=== PATIENT | male | born 1940 | race Hispanic/Latino ===

== ENCOUNTER 2017-04-25 15:16 | Observation (INO) | payer MEDICARE, MEDICAID ==
[~2017-04-25] VITALS: Ht 175.3 cm; Wt 93.0 kg
[2017-04-25] VITALS (8 sets, daily range): BP systolic 143–181; BP diastolic 77–88; PULSE 74–84; RESP 15–18; O2SAT 98–100
[~2017-04-25 15:16] MED LIST: ASPI-973 PO; CYCL10TA9 PO; HYDR-3091 PO; INSU100I13 SUBQ; LOSA1TAB35 PO; ROSU40TA PO
--- NOTE | 2017-04-25 15:23 | ED.REPORT ---
HPI-General Illness Date of Service Apr 25, 2017 ED Provider: Dr. Ovi Hernandez MD Patient is 77 year old, Mauritanian-speaking male with a history of CAD, diabetes mellitus type II, hypertension, hyperlipidemia and depression who presents to the ED with shaking chills that began 1 week ago. 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 Munira Kahn, after presenting with chills, diaphoresis, general fatigue, subjective fever, new onset LE edema and new onset murmur. He was sent to the ED with concern for endocarditis. His symptoms initially began 3 weeks ago with general fatigue, but the episodes of chills and diaphoresis began 1 week ago. TTE from 1 year ago was unremarkable except mitral annular calcification. EKG at the cardiology clinic was normal. They deny any history of cardiac infection. Recent sick contacts had diarrhea but patient has not experienced any abnormal BM. Family denies any recent rash, chest pain or SOB. Nursing Notes Stated Complaint: CHEST PAIN FROM CARDIOLOGY Chief Complaint: General Complaint Nursing Notes Reviewed: Yes Allergies: Coded Allergies: No Known Allergies (Unverified , 04/25/17) Scheduled Aspirin (Aspirin) 81 Mg Tablet 81 MG PO DAILY Insulin Aspart (NovoLOG U-100 Pen) 100 Unit/Ml Insuln.pen 14 UNITS SUBQ DAILYWM Insulin Glargine (Lantus U100 Solostar Insulin Pen) 100 Unit/1 Ml Insuln.pen 54 UNIT SUBQ QAM Losartan/HCTZ 100-12.5 mg (Losartan/HCTZ 100-12.5 mg) 1 Each Tablet 1 TABLET PO DAILY Metformin (Metformin) 500 Mg Tablet 1,000 MG PO BID Metoprolol Succinate ER (Metoprolol Succinate ER) 25 Mg Tab.er.24h 25 MG PO DAILY Rosuvastatin Calcium (Crestor) 40 Mg Tablet 40 MG PO DAILY Scheduled PRN Triamcinolone Acetonide (Triamcinolone Acetonide Ointment) 15 Gm Oint...g. 1 APPLIC TOP BID PRN PRN rash General Time Seen by MD: 15:22 Chief Complaint Other (Shanking chills) Hx Obtained From: Patient Arrived By: Walk-in Sudden in Onset?: No Onset Occurred: 21 - 23 hours ago Symptom Duration: Since onset Location: : Chest Quality: Painful Severity: Current: Mild Severity: Maximum: Moderate Associated with: Reports: Chest pain, Diaphoresis Pertinent Negative: Pt denies other symptoms Recent Healthcare: No recent hospitalization, Recent doctor visit Past Medical History Past Medical History Notes: Cardiology: Dr. Munira Kahn MD Echocardiogram 03/13/14: Interpretation Summary The left ventricle is normal in size. Left ventricular systolic function is probably normal. The ejection fraction is estimated to be 55-60%. In limited views, there is hypokinesis of the anterior and anteroseptal segments. The right ventricle is not well visualized. The right ventricle grossly appears normal in size with probable normal systolic function. Pulmonary artery pressures cannot be estimated because of the lack of a measurable TR jet velocity. The left atrium is borderline dilated. Right atrial size is normal. There is moderate to severe mitral annular calcification. There is no other significant valvular heart disease. Moderate atherosclerotic plaque(s) in the aortic arch. Past Medical History Reports: Coronary artery disease, Diabetes mellitus, Hyperlipidemia, Hypertension Reports: Depression Past Surgical History Reports: CABG Smoking History Unknown if Ever Smoker Social History Alcohol Use: Denies alcohol use Drug Use: Denies drug use Other Social History: Good social support Ambulatory Status Independent Review of Systems New onset heart murmur Full Review of Systems Constitutional: Reports: Chills, Fatigue, Fever (subjective ) Respiratory: Denies: Shortness of breath Cardiovascular: Reports: Chest pain, Edema (New onset LE edema) Skin: Reports Diaphoresis, Denies Rash Complete sys rev & neg: except as marked. Physical Exam Vital Signs Vital Signs Date Time Temp Pulse Resp B/P Pulse Ox O2 Delivery O2 Flow Rate FiO2 04/25/17 17:52 78 16 167/81 100 Room Air 04/25/17 16:49 80 15 158/80 100 Room Air 04/25/17 15:18 37.1 74 16 143/77 99 Room Air Initial VS: Reviewed Neck: Supple, Non-tender, Full range of motion Skin: Warm, Dry, No cyanosis Neurologic: Alert, Oriented, Nonfocal Psychiatric: Mood/affect normal, Behavior normal, Normal thought content General/Constitutional: Awake, Alert, No acute distress, Well appearing, Well developed Head / Eyes: Atraumatic, Normocephalic, PERRL Respiratory / Chest: Atraumatic, Breath sounds NL, Breath sounds = bilat, No respiratory distress Cardiovascular: Heart rate NL, Regular rhythm, No gallop, No murmurs, No rubs Heart Sounds / Murmur: Positive: Systolic murmur present.. (III/; best heard in the right upper sternal boarder ) Lower Ext Edema: Positive: Bilateral 2+ (symmetric 2 + pitting edema that extends up to the knee), Pitting CARDIO: No splinter hemorrhage No ossicular nodes No other evidence of endocarditis Abdomen: Atraumatic, Soft, Non-tender, BS normoactive, No distention Upper Extremities Upper Extremity / MS: Atraumatic, Inspection NL, Neurologic intact, Vascular intact Lower Extremity / Pelvis / MS: Atraumatic, Neurologic intact, Vascular intact Interpretation & Diagnostics Lab Results Interpretation Result Diagram: 04/25/17 1540 04/25/17 1540 Test 04/25/17 15:40 04/25/17 16:07 04/25/17 16:40 White Blood Count 7.0th/mm3 (3.8-10.1) Red Blood Count 4.23mil/mm3 (4.40-5.80) Hemoglobin 12.1g/dL (13.8-17.2) Hematocrit 36.5% (41.0-50.0) Mean Corpuscular Volume 86.3fL (81-100) Mean Corpuscular Hemoglobin 28.6pg (27.0-35.0) Mean Corpuscular Hemoglobin Concent 33.2% (32.0-37.0) Red Cell Distribution Width 13.9% (12.3-15.4) Platelet Count 219bil/L (150-400) Neutrophils (%) (Auto) 69.8% (40-74) Lymphocytes (%) (Auto) 18.9% (14-46) Monocytes (%) (Auto) 9.4% (4-12) Eosinophils (%) (Auto) 1.0% (0-5) Basophils (%) (Auto) 0.6% (0-3) Prothrombin Time 10.2sec (8.1-12.5) Prothromb Time International Ratio 0.95ratio Sodium Level 137mEq/L (134-144) Potassium Level 3.9mEq/L (3.5-5.2) Chloride Level 102mEq/L (97-108) Carbon Dioxide Level 19mmol/L (18-29) Blood Urea Nitrogen 23mg/dL (8-27) Creatinine 1.07mg/dL (0.76-1.27) Estimat Glomerular Filtration Rate 71mL/min (>59) Glucose Level 212mg/dL (60-99) Calcium Level 9.0mg/dL (8.5-10.1) Magnesium Level 1.8mg/dL (1.6-2.6) Total Bilirubin 0.2mg/dL (0.0-1.2) Aspartate Amino Transf (AST/SGOT) 23U/L (0-50) Alanine Aminotransferase (ALT/SGPT) 11U/L (0-44) Alkaline Phosphatase 40U/L (25-160) Troponin T < 0.010ug/L (0.0-0.011) C-Reactive Protein 0.5mg/dL (0.0-0.5) Pro-B-Type Natriuretic Peptide 272.6pg/mL (0-486) Total Protein 6.7g/dL (6.4-8.4) Albumin 3.2g/dL (3.4-5.0) Lactic Acid Level 1.0mmol/L (0.4-2.0) Erythrocyte Sedimentation Rate 38mm/hr (0-30) ECG Interpretation ECG Interpretation: Sinus Rhythm Rate 77 bpm L axis deviation Inferior Q waves No ST changes No T wave abnormalities When compared to prior 11/12/15 - No acute changes present Time: 16:01 Interpreted by: ED physician X-Ray Chest Interpretation Chest Xray Interpretation: IMPRESSION: No acute cardiopulmonary disease. Left basilar scar/atelectasis. Dictated by: Sebastien Sorensen M.D. on 04/25/2017 at 16:39 Interpretation / Wet Read by: Interpret - Radiologist Re-Eval/Medical Decision Med Decision/Clinical Course Patient is 77 year old, [place]itanian-speaking male with a history of CAD, diabetes mellitus type II, hypertension, hyperlipidemia and depression who presents to the ED with shaking chills that began 1 week ago. 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 Munira Kahn, after presenting with chills, diaphoresis, general fatigue, subjective fever, new onset LE edema and new onset murmur. He was sent to the ED with concern for endocarditis. Here in the emergency department the patient is somewhat unwell appearing though afebrile and hemodynamically stable with examination as above. EKG Sinus Rhythm Rate 77 bpm L axis deviation Inferior Q waves No ST changes No T wave abnormalities When compared to prior 11/12/15 - No acute changes present LABS CBC no leukocytosis Hct = 36.5 CMP unremarkable except glucose = 312 Troponin negative BNP within normal limits C reactive protein = 1.5 Coag norm CXR: No acute cardiopulmonary disease. Left basilar scar/atelectasis. 3 sets of blood cultures were obtained. A transthoracic echocardiogram was ordered. The patient's pretest probability for bacterial endocarditis seems relatively low as the patient has no history of IV drug use or valvular disease/ valvular surgery. That being said indolent infection symptoms including subjective fevers, chills and sweats in the setting of new-onset murmur is somewhat concerning for endocarditis. After discussing further with cardiology we have opted to withhold antibiotics until echocardiogram is ordered as our suspicion is still relatively low. Patient was discussed with hospitalist and admitted for further workup and management and consultation with cardiology. Transferred in stable condition. Time of Eval: 15:35 Re-Evaluation/Progress Note: Family is informed of the pt's concerning symptoms and the likely plan to admit for endocarditis work-up. Re-Evaluation/Progress Note: The patient's symptoms have improved. Consultation #1: Referral / Consult Name: Deng Allan MD Consulted With: Cardiology Call Returned at: 16:43 Control Area Operator: Will see patient, Agrees with eval, Agrees with plan Note: Agrees to consult on the patient Consultation #2: Referral / Consult Name: Tarun Dumont MD Consulted With: Hospitalist Call Returned at: 17:06 Control Area Operator: Will see patient, Agrees with eval, Agrees with plan, Accepts admit Counseled Regarding: Diagnosis, Lab results, Need for admission Discharge & Departure Primary Impression: Heart murmur, systolic Additional Impressions: Fever Fever type: unspecified Qualified Code: R50.9 - Fever, unspecified Chills Night sweats Hyperglycemia Disposition: ADMITTED TO HOSPITAL Discharge Condition All VS Reviewed: Yes Condition: Stable Referrals: NOPCP (PCP) Munira Kahn MD Scribe Attestation Portions of this note were transcribed by Komal Jaquez. I, Dr. Hernandez personally performed the history, physical exam and medical decision-making; I reviewed and confirmed the accuracy of the information in the transcribed note. Signed by: Olegario Smith, 04/25/17 1216. copies to: Munira Kahn MD, Beck O MD Apr 25, 2017 15:23 KOMAL JAQUEZ Apr 25, 2017 15:36
[2017-04-25 15:53] LABS: BASOPHILS % (AUTO) 0.6 % (0-3); MONOCYTES % (AUTO) 9.4 % (4-12); Mean Corpuscular Hemoglobin 28.6 pg (27.0-35.0); Mean Corpuscular Volume 86.3 fL (81-100); NEUTROPHILS % (AUTO) 69.8 % (40-74); Platelet Count 219 bil/L (150-400)
[2017-04-25] MEDS ORDERED: INSU100I SUBQ (15:58)
[2017-04-25] MEDS ORDERED: METO25TA99 PO (15:58)
[2017-04-25] MEDS ORDERED: METF500T4 PO (16:01)
[2017-04-25 16:11] LABS: INR 0.95 ratio
[2017-04-25 16:23] LABS: TROPONIN T < 0.010 ug/L (0.0-0.011)
[2017-04-25] MEDS ORDERED: TRIA15OI9 TOP (16:27)
[2017-04-25 16:33] LABS: Magnesium 1.8 mg/dL (1.6-2.6)
--- NOTE | 2017-04-25 16:42 | DRSVH ---
PROCEDURE: X-RAY CHEST, TWO VIEWS ([id number]) INDICATIONS: 77-year-old male with shortness of breath. TECHNIQUE: 2 views of the chest were acquired. COMPARISON: [facility], , CHEST 2VW, 01/24/2014, 11:15. FINDINGS: Surgical changes and devices: Sternotomy. There are multiple surgical clips around the mediastinum. Lungs and pleura: No pleural effusions or pneumothorax. Left basilar scar/atelectasis. Mediastinum: Mediastinal contours are normal. Heart size is normal. Bones and chest wall: No suspicious bony abnormalities. Soft tissues appear unremarkable. IMPRESSION: No acute cardiopulmonary disease. Left basilar scar/atelectasis. Dictated by: Sebastien Sorensen M.D. on 04/25/2017 at 16:39 Approved by: Sebastien Sorensen M.D. on 04/25/2017 at 16:41
[2017-04-25] MEDS ORDERED: Ondansetron 2 mg/mL 2 mL Inj IVPUSH PRN (17:55)
[2017-04-25] MEDS ORDERED: Alum-Mag Hydrox-Simeth 30 mL Suspension PO PRN (17:55)
[2017-04-25] MEDS ORDERED: Polyethylene Glycol (PEG) 17 Gm Powder PO PRN (17:55)
[2017-04-25] MEDS ORDERED: Glucose 40% Oral Gel 15 Gm Tube PO PRN (18:00)
[2017-04-25] MEDS: Insulin GLARgine 100 Unit/mL Syringe SUBQ SCH (18:00)
[2017-04-25] MEDS ORDERED: TRIAMCINOLONE ACETONIDE TOPICAL PRN (18:00)
--- NOTE | 2017-04-25 18:11 | NUR ---
Admit Pt admitted to [facility] room 3030 via ED, report received from Anastasiya. Pt arrived via wheelchair, was able to ambulate to scale and bed independently. Family at bedside, good support, and translating for staff. Pt A/O x 3, able to make needs known, cooperative and pleasant to staff. Will continue to monitor.
[2017-04-25] MEDS ORDERED: Labetalol 5 mg/mL 20 mL Inj IVPUSH PRN (18:45)
[2017-04-25] MEDS ORDERED: Labetalol 5 mg/mL 20 mL Inj IVPUSH ONE (18:55)
--- NOTE | 2017-04-25 20:14 | PCM.HPMED ---
Subjective Date of Service Apr 25, 2017 Primary Provider: Admitting Physician: Tarun Dumont MD Primary Care Physician: [place] Attending Physician: Tarun Dumont MD Admit Status: From the Emergency Department Chief Complaint: Diaphoresis , edema History of Present Illness: Patient is 77 year old, Croatian-speaking male with a history of CAD (s/p CABG 2008, and revision in 2009 as per family), diabetes mellitus type II, hypertension, hyperlipidemia and depression who presents to the ED with diaphoresis +/- chills for about a week. He added he has been experiencing edema in his legs for a month or so. 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 Munira Kahn, after presenting with chills, diaphoresis, general fatigue = new onset LE edema and new onset murmur. He was sent to the ED with concern for endocarditis. His symptoms initially began 3 weeks ago with general fatigue , but the episodesdiaphoresis began 1 week ago. TTE from 1 year ago was unremarkable except mitral annular calcification. EKG at the cardiology clinic was normal. They deny any history of cardiac infection. Recent sick contacts had diarrhea but patient has not experienced any abnormal BM. Family denies any recent rash, chest pain or SOB.He did add that his tooth broke about a week ago while eating a modi. However denies, any pain around that area. Allergies Coded Allergies: No Known Allergies (Unverified , 04/25/17) Constitutional: : Chills: Sweats Eyes: No: Conjunctivae inflammation, Eyelid inflammation, Other, Pain, Redness , Vision change ENT: No: Ear discharge, Ear pain, Mouth pain, Mouth swelling, Nose congestion, Nose discharge, Nose pain, Other, Throat pain, Throat swelling Respiratory: No: Cough, Dry, Hemoptysis, Other, Pleuritic Pain, SOB with excertion, Shortness of breath, Sputum, Wheezing, Wheezing Cardiovascular: : Edema Gastrointestinal: No: Abdominal Pain, Constipation, Diarrhea, Hematochezia, Melena, Nausea, Other, Vomiting Genitourinary: Negative for: Dysuria, Frequency, Hematuria, Incontinence, Other , Retention Musculoskeletal: : hand pain (bilateral )No: arm pain, back pain, foot pain, leg pain, neck pain, other, shoulder pain Skin: No: Bruising, Jaundice, Lesions, Other, Rash Neurological: No: Change in speech, Confusion, Incoordination, Numbness, Other , Seizures, Weakness Home Meds Reported Medications Triamcinolone Acetonide (Triamcinolone Acetonide Ointment)15 Gm Oint...g.1 Applic TOP BID PRN rash 04/25/17 Metformin 500 Mg Tablet1,000 Mg PO BID 04/25/17 Metoprolol Succinate ER 25 Mg Tab.er.24h25 Mg PO DAILY 04/25/17 Insulin Aspart (NovoLOG U-100 Pen)100 Unit/Ml Insuln.pen14 Units SUBQ DAILYWM 04/25/17 Losartan/HCTZ 100-12.5 mg 1 Each Tablet1 Tablet PO DAILY 11/12/15 Insulin Glargine (Lantus U100 Solostar Insulin Pen)100 Unit/1 Ml Insuln.pen54 Unit SUBQ QAM 11/12/15 Rosuvastatin Calcium (Crestor)40 Mg Bkodod47 Mg PO DAILY 11/12/15 Aspirin 81 Mg Vedvjt34 Mg PO DAILY 11/12/15 Discontinued Reported Medications Hydrocodone-Acetaminophen 7.5-300 mg 1 Each Tablet1 Each PO BID PRN For Pain Ref 0 started 11/11/15 11/12/15 Cyclobenzaprine 10 Mg Arnhig60 Mg PO TID PRN Spasm started 11/11/15 11/12/15 PM Coronary artery disease, Diabetes mellitus, Hyperlipidemia, Hypertension Surgical History CABG Social History Hx Alcohol Use: No Hx Substance Use: No Smoking Status: Unknown if Ever Smoker Exam Vital Signs Vital Sign - Last Date Time Temp Pulse Resp B/P Pulse Ox O2 Delivery O2 Flow Rate FiO2 04/25/17 19:50 36.5 81 18 158/80 98 Room Air Exam Neck: Supple, Non-tender, Full range of motion Skin: Warm, Dry, No cyanosis Neurologic: Alert, Oriented, Nonfocal Psychiatric: Mood/affect normal, Behavior normal, Normal thought content General/Constitutional: Awake, Alert, No acute distress, Well appearing, Well developed Head / Eyes: Atraumatic, Normocephalic, PERRL Respiratory / Chest: Atraumatic, Breath sounds NL, Breath sounds = bilat, No respiratory distress Cardiovascular: Heart rate NL, Regular rhythm, No gallop, No murmurs, No rubs Heart Sounds / Murmur: Positive: Systolic murmur present.. (III/) Lower Ext Edema: Positive: Bilateral 2+ (symmetric 2 + pitting edema that extends up to the knee), Pitting Lab and Diagnostics Result Diagram: 04/25/17 1540 04/25/17 1540 X-Rays, CTs and MRIs CXR IMPRESSION: No acute cardiopulmonary disease. Left basilar scar/atelectasis. 12-lead ECG . Sinus rhythm . Probable left atrial enlargement . Abnormal R-wave progression, early transition . Inferior infarct, old . When compared with ECG of 12-Nov-2015 19:28:39, . Change in interpretation without significant change in waveform Assessment & Plan Patient is 77 year old, Croatian-speaking male with a history of CAD (s/p CABG 2008, and revision in 2009 as per family), diabetes mellitus type II, hypertension, hyperlipidemia and depression who presents to the ED with diaphoresis +/- chills for about a week, sent from clinic with new systolic murmur. > Systolic murmur - grade III/ - considering given history, and h/o CABG, concern for endocarditis - labs negative for infection - no lactic acidosis, however ESR mildly elevated - echo pending > h/o CAD with CABG - on aspirin, beta blockers and statins - troponin -ve > DM - glucose at admission > 200 - started home dose insulin and correction dose - hba1c ordered > HTN - blood pressure elevated at admission - labetalol prn - continue home meds > HLD - continue home meds Time spent 50 mins Attending Statement Patient is admitted under observation status with expected length of stay <2 midnights. Tarun Dumont MD Apr 25, 2017 20:14
[2017-04-25] MEDS ORDERED: Triamcinolone 0.1% 30 Gm Cream TOPICAL PRN (21:16)
[2017-04-25 21:34] LABS: APPEARANCE,URINE CLEAR (CLEAR,HAZY); COLOR,URINE YELLOW (YELLOW); OCCULT BLOOD,URINE SMALL (NEGATIVE); UROBILINOGEN,URINE NORMAL (NORMAL)
--- NOTE | 2017-04-25 22:57 | NUR ---
Chest pain: Pt reported sudden onset of chest pain located just below the left nipple line at 2024. Denies shortness of breath, diaphoresis, and non radiating. No changes in pain with breathing. Pt stated he "slept in a bad position" per medical interpreter. EKG was ordered and completed and in chart. BP at this time was 181/87, HR 70s. After pt was pulled up in the bed, pain went away, BP decreased to 160s. Pt is resting comfortably in bed again at this time.
[2017-04-26] VITALS (7 sets, daily range): BP systolic 153–170; BP diastolic 73–86; PULSE 72–83; RESP 16–18; O2SAT 98–100
--- NOTE | 2017-04-26 02:07 | NUR ---
No temp: Pt felt feverish. Afebrile at this time, 36.6 C oral.
[2017-04-26 07:19] LABS: BASOPHILS % (AUTO) 0.7 % (0-3); EOSINOPHILS % (AUTO) 2.6 % (0-5); MONOCYTES % (AUTO) 10.9 % (4-12); Mean Corpuscular Hemoglobin 28.7 pg (27.0-35.0); Mean Corpuscular Volume 86.5 fL (81-100); NEUTROPHILS % (AUTO) 62.2 % (40-74); Platelet Count 198 bil/L (150-400)
[2017-04-26] MEDS: Insulin LISPRO 300 Unit/3 mL Inj SUBQ SCH ×2 (08:00→09:34)
[2017-04-26] MEDS ORDERED: MeTOProlol XL 25 mg ER24 Tablet PO SCH (08:30)
[2017-04-26] MEDS ORDERED: LOSARTAN PO SCH (08:30)
[2017-04-26] MEDS ORDERED: HCTZ PO SCH (08:30)
[2017-04-26] MEDS: Insulin GLARgine 100 Unit/mL Syringe SUBQ SCH (09:30)
--- NOTE | 2017-04-26 12:29 | NUR ---
Case Management- RAMIREZ explained and signed/timed at 1212pm by patient. Copy given to patient and original placed in chart. Robyn LOYOLA/ ADRIÁN
--- NOTE | 2017-04-26 13:58 | NUR ---
Social Work: Initial Assessment/Readiness for Discharge D: EMR reviewed. Pt is a 77 y/o male admitted for possible endocarditis per H&P. SW met with pt and family at bedside to conduct initial assessment. Pt was alert and oriented x3. SW explained role and wrote phone number on white board in room. SW confirmed pt has completed DPOA/advanced directive ppw and encouraged pt to provide a copy to the hospital. SW provided [facility] required "Your Discharge Planning Checklist." Pt asked that SW coordinate discharge plan and assessment with daughter/DPOA Yary Alfredo ([phone]). Pt gave verbal consent to discuss pt's healthcare and discharge plan in front of family in room. Pt's insurance is Medicare and [facility] Supplemental. Pt does not have RYLIE - SW provided RYLIE information sheet. Pt's PCP is Dr. Kahn. Pt does not own or use any DME. Pt is independent with ADLs. Pt does not have LTC insurance or VA benefits. Pt drives. Pt is independent at baseline. Pt lives with his spouse and daughter Yary in a split level home with 2 steps to enter and 12 steps to the next level, in [place]. Pt's daughter Yary confirmed she will provide transport home via POV when pt is medically stable. SW will continue to follow. Per MD in AM multi-disciplinary rounds, pt is likely to discharge today with no needs - pending results from echo. A: Pt who is independent at baseline P: Pt's daughter Yary confirmed she will provide transport home via POV when pt is medically stable. SW will continue to follow. CAROLINE Maldonado Addendum: 04/26/17 at 1412 by AMINATA ADAMES Amended: Links added.
--- NOTE | 2017-04-26 14:32 | DRSVH ---
[facility] [address] [place] [address] Echocardiogram Report Name: VERONICA GOMEZ Study Date: 04/26/2017 Height: 63 in Hospital Exam Location: [facility] Weight: 207 lb Gender: Male BSA: 2.0 m2 : 1940 Age: 77 yrs BP: 156/73 m mHg Reason For Study: Endocarditis History: CABG, DM, HTN Ordering Physician: EDILIA [facility] Performed By: Loida Demarco Referring Physician: Munira Kahn Interpretation Summary The study quality was technically difficult. A contrast injection of Definity was performed to improve assessment of LV function. The ejection fraction is estimated to be 55-60%. The mitral valve leaflets are mildly calcified. The aortic valve is not well visualized. Leaflet mobility is moderately reduced. The calculated aortic valve area is 1.5 cm2. Consider MARITZA if clinicaly indicated. Procedure: A two-dimensional transthoracic echocardiogram with color flow and Doppler was performed. The study quality was technically difficult. A contrast injection of Definity was performed to improve assessment of LV function. Comparison is made with the echocardiogram of 02/21/2016. The patient was in normal sinus rhythm during the exam. The patient had a bundle branch block rhythm during the exam. Left Ventricle: The left ventricle is normal in size. Left ventricular wall thickness is at the upper limits of normal. The ejection fraction is estimated to be 55-60%. There are no obvious focal wall motion abnormalities noted but poor endocardial definition reduces the sensitivity for the detection of such. Spectral Doppler of the mitral valve is reversed, with an E/A wave ratio < 0.8. Right Ventricle: The right ventricle is not well visualized. Right ventricular function cannot be assessed due to poor image quality. Atria: The left atrium appears mildly dilated. Right atrium not well visualized. Mitral Valve: There is moderate to severe mitral annular calcification. The mitral valve leaflets are mildly calcified. There is trace mitral regurgitation. Aortic Valve: The aortic valve is not well visualized. The aortic valve is mildly calcified. Leaflet mobility is moderately reduced. The peak aortic velocity is 2.0 m/sec. The aortic valve mean gradient is 9 mmHg. The calculated aortic valve area is 1.5 cm2. The aortic valve area indexed to the BSA is 0.78 . No aortic regurgitation is present. Tricuspid Valve: The tricuspid valve is not well visualized. Pulmonary artery pressures cannot be estimated because of the lack of a measurable TR jet velocity. Pulmonic Valve: The pulmonic valve is not well visualized. Great Vessels: The aortic root is normal size. The ascending aorta could not be visualized. The inferior vena cava was not visualized. Pericardium/ Pleura There is no pericardial effusion. MMode/2D Measurements & Calculations LVIDd: 4.8 cm LA A4 area LVOT diam LV elise. diameter/BSA LVIDs: 3.5 cm (cm/m^2): 2.4 FS: 27.2 % Ao root diam IVSd: 0.89 cm LA length LVPWd: 1.0 cm (vol): 6.7 cm LV sys. diameter/BSA (cm/m^2): 1.8 Doppler Measurements & Calculations Ao V2 max MV E max damian MV E/A: 0.71 MV V2 mean : 203.9 cm/sec : 109.9 cm/sec Med Peak E' Damian : 80.3 cm/sec Ao max PG MV A max damian MV mean PG : 16.6 mmHg : 154.7 cm/sec E/E' med: 18.4 Ao mean PG Lat Peak E' Damian MV V2 VTI MVA(VTI): 1.8 cm2 LVOT Max Damian E/E' lat: 17.0 MV dec time : 110.2 cm/sec E/e' average: 17.7 : 0.28 sec MAMI(I,D): 1.5 cm sev ratio Ao V2 mean LV V1 max PG MAMI indexed to BSA : 137.7 cm/sec (cm^2/m^2): 0.78 Ao V2 VTI: 41.2 cmLV V1 VTI: 25.4 cm MAMI(V,D): 1.3 cm2 Electronically signed by: Adam Arvizu on Reading Physician:04/26/2017 02:31 PM
--- NOTE | 2017-04-26 16:17 | PCM.DIMED ---
Discharge Instructions Date of Service Apr 26, 2017 Dates of Hospitalization Apr 25, 2017 at 17:56 Diet Discharge Diet: Heart Healthy Activity Discharge Activity: No restrictions Call your provider Call your provider for: Fever or Chills, Shortness of breath, Chest pain Patient Instructions Follow-up with PCP in: 1 week Bhaskar Boothe MD Apr 26, 2017 16:16
--- NOTE | 2017-04-26 17:03 | NUR ---
Discharge Pt discharged at this time. All belongings gathered and returned to pt. VSS. No complains of increased pain or lower extremity swelling. No new scripts given, discharge packet printed and reviewed with pt and family. Pt taken from [facility] in wheelchair by [employer], to be transported home in private vehicle driven by family.
--- NOTE | 2017-04-27 07:11 | PCM.DC.MED ---
Discharge Summary Date of Service Apr 26, 2017 Dates of Hospitalization Date of Hospital Admission Apr 25, 2017 at 17:56 Date of Discharge: Apr 26, 2017 Providers: Admitting Physician: Taurn Dumont MD Primary Care Physician: [place] Attending Physician: Bhaskar Boothe MD Diagnosis at Time of Discharge Diagnosis at Time of Discharge systolic murmur Procedures XRay, CTs & MRIs CXR IMPRESSION: No acute cardiopulmonary disease. Left basilar scar/atelectasis. ECG 12 Lead . Sinus rhythm . Probable left atrial enlargement . Abnormal R-wave progression, early transition . Inferior infarct, old . When compared with ECG of 12-Nov-2015 19:28:39, . Change in interpretation without significant change in waveform Cardiac Echo Impression Left Ventricle: The left ventricle is normal in size. Left ventricular wall thickness is at the upper limits of normal. The ejection fraction is estimated to be 55-60%. There are no obvious focal wall motion abnormalities noted but poor endocardial definition reduces the sensitivity for the detection of such. Spectral Doppler of the mitral valve is reversed, with an E/A wave ratio < 0.8. Right Ventricle: The right ventricle is not well visualized. Right ventricular function cannot be assessed due to poor image quality. Atria: The left atrium appears mildly dilated. Right atrium not well visualized. Mitral Valve: There is moderate to severe mitral annular calcification. The mitral valve leaflets are mildly calcified. There is trace mitral regurgitation. Aortic Valve: The aortic valve is not well visualized. The aortic valve is mildly calcified. Leaflet mobility is moderately reduced. The peak aortic velocity is 2.0 m/sec. The aortic valve mean gradient is 9 mmHg. The calculated aortic valve area is 1.5 cm2. The aortic valve area indexed to the BSA is 0.78 . No aortic regurgitation is present. Tricuspid Valve: The tricuspid valve is not well visualized. Pulmonary artery pressures cannot be estimated because of the lack of a measurable TR jet velocity. Pulmonic Valve: The pulmonic valve is not well visualized. Great Vessels: The aortic root is normal size. The ascending aorta could not be visualized. The inferior vena cava was not visualized. Pericardium/ Pleura There is no pericardial effusion. Brief History Patient is 77 year old, [place]-speaking male with a history of CAD (s/p CABG 2008, and revision in 2009 as per family), diabetes mellitus type II, hypertension, hyperlipidemia and depression who presents to the ED with diaphoresis +/- chills for about a week. He added he has been experiencing edema in his legs for a month or so. 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 Munira Kahn, after presenting with chills, diaphoresis, general fatigue = new onset LE edema and new onset murmur. He was sent to the ED with concern for endocarditis. His symptoms initially began 3 weeks ago with general fatigue , but the episodesdiaphoresis began 1 week ago. TTE from 1 year ago was unremarkable except mitral annular calcification. EKG at the cardiology clinic was normal. They deny any history of cardiac infection. Recent sick contacts had diarrhea but patient has not experienced any abnormal BM. Family denies any recent rash, chest pain or SOB.He did add that his tooth broke about a week ago while eating a modi. However denies, any pain around that area. Hospital Course Patient is 77 year old, [place]-speaking male with a history of CAD (s/p CABG 2008, and revision in 2009 as per family), diabetes mellitus type II, hypertension, hyperlipidemia and depression who presents to the ED with diaphoresis +/- chills for about a week, sent from clinic with new systolic murmur. > Systolic murmur - grade III/ - considering given history, and h/o CABG, concern for endocarditis - labs negative for infection - no lactic acidosis, however ESR mildly elevated - echo pending > h/o CAD with CABG - on aspirin, beta blockers and statins - troponin -ve > DM - glucose at admission > 200 - started home dose insulin and correction dose - hba1c ordered > HTN - blood pressure elevated at admission - labetalol prn - continue home meds > HLD - continue home meds Patient did undergo a transthoracic echocardiogram. Study do not show any obvious vegetations on the valves. He was not having any chest pain did not spike any fevers. His vital signs remained stable. His initial blood cultures were negative. Endocarditis would be low on the differential. Findings were discussed with the patient he did request to be discharged. There is any fevers chills chest pain shortness of breath he was told to seek attention. If this continues to remain a concern in the future MARITZA may be indicated. At this point no further workup indicated. Patient is to follow-up with cardiology and primary care as scheduled. Exam Vital Signs (Last) Date Time Temp Pulse Resp B/P Pulse Ox O2 Delivery O2 Flow Rate FiO2 04/26/17 13:26 36.5 83 18 153/74 99 Room Air Exam General: No acute distress cooperative Cardiovascular; to a 2/6 systolic murmur regular rate and rhythm Lungs: Clear to loss vision bilaterally Neurological alert and oriented 3 Psychiatric: Appropriate mood and affect Test 04/25/17 15:40 04/25/17 16:07 04/25/17 16:40 04/25/17 21:18 Prothrombin Time 10.2sec (8.1-12.5) Prothromb Time International Ratio 0.95ratio Magnesium Level 1.8mg/dL (1.6-2.6) Total Bilirubin 0.2mg/dL (0.0-1.2) Aspartate Amino Transf (AST/SGOT) 23U/L (0-50) Alanine Aminotransferase (ALT/SGPT) 11U/L (0-44) Alkaline Phosphatase 40U/L (25-160) Troponin T < 0.010ug/L (0.0-0.011) C-Reactive Protein 0.5mg/dL (0.0-0.5) Pro-B-Type Natriuretic Peptide 272.6pg/mL (0-486) Total Protein 6.7g/dL (6.4-8.4) Albumin 3.2g/dL (3.4-5.0) Lactic Acid Level 1.0mmol/L (0.4-2.0) Erythrocyte Sedimentation Rate 38mm/hr (0-30) Urine Color Yellow (YELLOW) Urine Appearance Clear (CLEAR,HAZY) Urine pH 7.0 (5.0-8.0) Urine Specific [place] 1.020 (1.003-1.035) Urine Protein 300mg/dL (NEG,TRACE) Urine Glucose (UA) Negativemg/dL (NEGATIVE) Urine Ketones Negativemg/dL (NEGATIVE) Urine Occult Blood Small (NEGATIVE) Urine Nitrite Negative (NEGATIVE) Urine Bilirubin Negative (NEGATIVE) Urine Urobilinogen Normalmg/dL (NORMAL) Urine Leukocyte Esterase Negative (NEGATIVE) Urine RBC 0-2/hpf (0-2) Urine WBC 0-5/hpf (0-5) Urine Epithelial Cells Few/hpf (NONE-MOD) Urine Crystals None seen (NONE SEEN) Urine Bacteria Few/hpf (NONE-FEW) Urine Hyaline Casts None/lpf (NONE) Urine Granular Casts None seen (NONE SEEN) Urine Waxy Casts None seen (NONE SEEN) Urine Red Blood Cell Casts None seen (NONE SEEN) Urine White Blood Cell Casts None seen (NONE SEEN) Urine Mucus None seen (None Seen) Urine Trichomonas None seen (NONE SEEN) Urine Yeast None (NONE SEEN) Urinalysis Comment None Urine Culture Reflexed Not indicated Test 04/26/17 06:53 White Blood Count 5.8th/mm3 (3.8-10.1) Red Blood Count 4.08mil/mm3 (4.40-5.80) Hemoglobin 11.7g/dL (13.8-17.2) Hematocrit 35.3% (41.0-50.0) Mean Corpuscular Volume 86.5fL (81-100) Mean Corpuscular Hemoglobin 28.7pg (27.0-35.0) Mean Corpuscular Hemoglobin Concent 33.1% (32.0-37.0) Red Cell Distribution Width 13.9% (12.3-15.4) Platelet Count 198bil/L (150-400) Neutrophils (%) (Auto) 62.2% (40-74) Lymphocytes (%) (Auto) 23.1% (14-46) Monocytes (%) (Auto) 10.9% (4-12) Eosinophils (%) (Auto) 2.6% (0-5) Basophils (%) (Auto) 0.7% (0-3) Sodium Level 141mEq/L (134-144) Potassium Level 4.0mEq/L (3.5-5.2) Chloride Level 104mEq/L (97-108) Carbon Dioxide Level 24mmol/L (18-29) Blood Urea Nitrogen 19mg/dL (8-27) Creatinine 1.01mg/dL (0.76-1.27) Estimat Glomerular Filtration Rate 76mL/min (>59) Glucose Level 156mg/dL (60-99) Hemoglobin A1c 7.7% (4.8-5.6) Calcium Level 8.9mg/dL (8.5-10.1) Discharge Medications Discharge Medications Aspirin (Aspirin) 81 Mg Tablet 81 MG PO DAILY (Reported) Insulin Aspart (NovoLOG U-100 Pen) 100 Unit/Ml Insuln.pen 14 UNITS SUBQ DAILYWM (Reported) Insulin Glargine (Lantus U100 Solostar Insulin Pen) 100 Unit/1 Ml Insuln.pen 54 UNIT SUBQ QAM (Reported) Losartan/HCTZ 100-12.5 mg (Losartan/HCTZ 100-12.5 mg) 1 Each Tablet 1 TABLET PO DAILY (Reported) Metformin (Metformin) 500 Mg Tablet 1,000 MG PO BID (Reported) Metoprolol Succinate ER (Metoprolol Succinate ER) 25 Mg Tab.er.24h 25 MG PO DAILY (Reported) Rosuvastatin Calcium (Crestor) 40 Mg Tablet 40 MG PO DAILY (Reported) As needed Triamcinolone Acetonide (Triamcinolone Acetonide Ointment) 15 Gm Oint...g. 1 APPLIC TOP BID PRN PRN rash (Reported) Followup Plan Discharge Diet: Heart Healthy Discharge Activity: No restrictions Follow-up with PCP in: 1 week Bhaskar Boothe MD Apr 27, 2017 07:11
== END 2017-04-26 17:20 | disposition home or self-care (01) ==
LOC: SED 15:16 → INTOOBSV 17:56 → MPC 17:56
PROVIDERS: ADMIT Internal Medicine; ATTEND Internal Medicine
DX: R01.1 Cardiac murmur, unspecified (principal); R50.9 Fever, unspecified; R61 Generalized hyperhidrosis; E11.65 Type 2 diabetes mellitus with hyperglycemia; Z79.4 Long term (current) use of insulin; Z79.84 Long term (current) use of oral hypoglycemic drugs; Z79.82 Long term (current) use of aspirin; I25.10 Atherosclerotic heart disease of native coronary artery without angina pectoris; Z95.1 Presence of aortocoronary bypass graft; I10 Essential (primary) hypertension; E78.5 Hyperlipidemia, unspecified; F32.9 Major depressive disorder, single episode, unspecified; R60.0 Localized edema
CPT/HCPCS: 36415; 71020; 80048; 80053; 81000; 83036; 83605; 83735; 83880; 84484; 85025; 85610; 85651; 86140; 87040; 93005; 99285; C8929; G0378; G0463; J1815; Q9957